=== PATIENT | female | born 1975 | race African-American/Black ===

== ENCOUNTER 2020-06-06 06:05 | Day surgery (SDC) | payer BC ==
[~2020-06-06] VITALS: Ht 177.8 cm; Wt 121.2 kg
[2020-06-06] VITALS (9 sets, daily range): BP systolic 110–149; BP diastolic 65–81
[2020-06-06] MEDS ORDERED: SUMA100T PO (06:28)
[2020-06-06] MEDS ORDERED: MELO-102 PO (06:28)
[2020-06-06] MEDS ORDERED: normal saline 1,000 ML IV SCH (06:35)
[2020-06-06] MEDS ORDERED: diphenhydrAMINE 25mg capsule PO PRN (06:35)
[2020-06-06 07:08] LABS: BASOPHILS # (AUTO) 0.1 X10'3 (0-0.2); BASOPHILS % (AUTO) 0.8 % (0-1); EOSINOPHILS # (AUTO) 0.1 X10'3 (0-0.9); EOSINOPHILS % (AUTO) 1.2 % (0-6); HEMATOCRIT 33.9 % (35.0-45.0); HEMOGLOBIN 10.6 g/dl (12.0-16.0); LYMPHOCYTES # (AUTO) 2.3 X10'3 (1.1-4.8); LYMPHOCYTES % (AUTO) 32.4 % (21-51); MEAN CORPUSCULAR HEMOGLOBIN 22.7 PG (27.0-31.0); MEAN CORPUSCULAR HGB CONC 31.4 g/dL (33.0-36.5); MEAN CORPUSCULAR VOLUME 72.4 FL (78-98); MEAN PLATELET VOLUME 9.5 FL (7.4-10.4); MONOCYTES # (AUTO) 0.6 X10'3 (0-0.9); MONOCYTES % (AUTO) 8.6 % (2-12); PLATELET COUNT 292 X10'3 (140-440); RED BLOOD COUNT 4.68 X10'6 (4.20-5.60); RED CELL DISTRIBUTION WIDTH 13.2 % (11.5-14.5)
[2020-06-06 07:17] LABS: ALBUMIN 3.4 G/DL (3.4-5.0); ANION GAP 6 (8-16); BLOOD UREA NITROGEN 14 MG/DL (7-18); BUN/CREATININE RATIO 15.9 (6.6-38.0); CALCIUM 7.8 MG/DL (8.5-10.1); CHLORIDE 108 MMOL/L (99-107); CREATININE 0.88 MG/DL (0.40-0.90); GLUCOSE 102 MG/DL (70-104); MAGNESIUM 1.9 MG/DL (1.5-2.4); POTASSIUM 3.7 MMOL/L (3.5-5.1); SODIUM 139 MMOL/L (135-145); TOTAL CARBON DIOXIDE 24.9 MMOL/L (24-32); eGFR 84 ML/MIN
[2020-06-06] MEDS ORDERED: verapamil 2.5 mg/ml inj IV ONE (07:57)
[2020-06-06] MEDS ORDERED: midazolam 2 mg/2 ml injection ONE ×2 (07:57→08:28)
[2020-06-06] MEDS ORDERED: LIDOcaine 1% (10mg/ml)w/preservative injection 20ml MDV ONE (07:58)
[2020-06-06] MEDS ORDERED: heparin 1,000unit/ml 10ml vial 10 ML ONE (07:58)
[2020-06-06] MEDS ORDERED: iohexol 350MG/ML 100ml bottle IV ONE (07:58)
[2020-06-06] MEDS ORDERED: nitroGLYCERIN-Tridil 50MG/D5W 250 ML IV ONE (07:58)
[2020-06-06] MEDS ORDERED: fentaNYL/PF 50MCG/1 ML 2ML syringe ONE (07:58)
[2020-06-06] MEDS ORDERED: iohexol 350 MG/ML 50ML vial IV ONE (07:58)
[2020-06-06] MEDS ORDERED: proCHLORperazine 10 MG/2 ml inj ONE (08:22)
[2020-06-06] MEDS ORDERED: proCHLORperazine 10 MG/2 ml inj IV PRN (10:25)
[2020-06-06] MEDS ORDERED: normal saline 1000ml 1,000 ML IV SCH (10:25)
[2020-06-06] MEDS ORDERED: HYDROcodone/acetaminophen 5mg/325mg tablet PO PRN (10:25)
[2020-06-06] MEDS ORDERED: HYDROcodone/acetaminophen 10/325mg tab PO PRN (10:25)
[2020-06-06] MEDS ORDERED: ondansetron/PF 4mg/2ml inj IV PRN (10:25)
== END 2020-06-06 12:30 | disposition home or self-care (01) ==
LOC: SSTAY O 06:05
PROVIDERS: ATTEND Internal Medicine Cardiovascular Disease
DX: R94.39 Abnormal result of other cardiovascular function study (principal); R07.89 Other chest pain; Z79.899 Other long term (current) drug therapy
CPT/HCPCS: 36415; 80048; 83735; 85025; 85610; 93005; 93458; 99152; 99153; C1769; C1894; J0780; J1644; J2001; J2250; J3010; J7030; Q0163; Q9967; A4620; A5120; J3490